=== PATIENT | female | born 1985 | race African-American/Black ===

== ENCOUNTER 2021-07-23 10:06 | Emergency (ER) | payer BC, SELFPAY ==
[2021-07-23] MEDS ORDERED: Morphine 4 MG/ML VIAL ONE (10:50)
[2021-07-23] MEDS ORDERED: Ondansetron PF 4 MG/2 ML Vial ONE (10:51)
[2021-07-23] MEDS ORDERED: Ibuprofen 200 MG TAB ONE (10:51)
[2021-07-23 11:12] LABS: Hemoglobin 13.3 g/dL (12.0-16.0); Mean Corpuscular HGB CONC 31.3 g/dL (32.0-36.0); Mean Corpuscular Hemoglobin 22.9 pg (27.0-31.0); Mean Corpuscular Volume 73.1 fL (78.0-98.0); Mean Platelet Volume 8.4 fL (7.4-10.4); Platelet Count 164 thou/uL (130-400); Red Blood Cell (RBC) Count 5.84 mill/uL (4.20-5.40); White Blood Cell (WBC) Count 4.5 thou/uL (4.8-10.8)
[2021-07-23 11:17] LABS: Bilirubin Small (Negative); Blood, Urine Trace (Negative); Clarity Cloudy (Clear); Glucose, Urine (Dipstick) Negative (Negative); Ketone, Urine > or equal to 80 mg/dL (Negative); Leukocyte Negative (Negative); Nitrite Negative (Negative); Protein, Urine (Dipstick) 30 mg/dL (Neg-Trace); Urobilinogen 0.2 mg/dL (Less than 2)
[2021-07-23 11:19] LABS: Specific Gravity, Urine 1.026 (1.002-1.036)
[2021-07-23 11:27] LABS: ALT (SGPT) 17 U/L (8-55); AST (SGOT) 19 U/L (5-34); Alkaline Phosphatase 69 U/L (40-110); Anion Gap 14 mmol/L (10-20); BHCG - Serum Negative (NEGATIVE); BUN (Urea Nitrogen) 10 mg/dL (7.0-18.7); Bilirubin, Total 0.5 mg/dL (0.2-1.2); Calc. Creatinine Clearance 0 mL/min (70-130); Carbon Dioxide 24 mmol/L (22-29); Chloride 102 mmol/L (98-107); Glucose 81 mg/dL (70-105); Potassium 3.8 mmol/L (3.5-5.1); Pregs Control Background? CLEAR/WHITE (CLR/WHITE); Pregs Control Bar Appear? YES (CONTROL BAR); Sodium 136 mmol/L (136-145)
[2021-07-23 11:32] LABS: Bacteria/HPF 1+ HPF (None Seen); Mucous/LPF 3+ LPF (<2+); RBC/HPF 0-3 HPF (0-3); Squamous Epithelial 0-3 HPF (0-3); Transitional Epithelial 0-3 HPF (None Seen); WBC/HPF 0-3 HPF (0-3)
[2021-07-23 11:42] LABS: Lymphocytes 23 % (21-51); MDiff Complete? YES; Microcytosis SLIGHT = 6-15 cells (100X) (0-5/hpf); Monocytes 11 % (0-10); Neutrophil 66 % (42-75); Platelet Morphology Comment Appears Adequate
[2021-07-24 11:50] LABS: SARS-CoV-2 PCR by NAA Not Detected (NotDetected)
== END 2021-07-23 12:03 | disposition home or self-care (01) ==
LOC: BURERS 10:06
DX: B34.9 Viral infection, unspecified (principal); R59.1 Generalized enlarged lymph nodes; L03.112 Cellulitis of left axilla; L03.111 Cellulitis of right axilla; Z20.822 Contact with and (suspected) exposure to COVID-19
CPT/HCPCS: 71045; 80053; 81003; 81015; 83605; 84703; 85025; 87804; 96374; 96375; J2270; J2405; U0003; U0005

== ENCOUNTER 2022-10-02 09:24 | Emergency (ER) | payer BC, SELFPAY ==
[2022-10-02] MEDS ORDERED: Acetaminophen 500 MG TAB ONE (09:42)
[2022-10-02] MEDS ORDERED: Ondansetron ODT 4 MG TAB ONE (09:42)
[2022-10-02 09:59] LABS: Hemoglobin 15.9 g/dL (12.0-16.0); Mean Corpuscular HGB CONC 30.8 g/dL (32.0-36.0); Mean Corpuscular Hemoglobin 22.9 pg (27.0-31.0); Mean Corpuscular Volume 74.4 fl (78.0-98.0); Mean Platelet Volume 7.9 fL (7.4-10.4); Platelet Count 226 10x3/uL (130-400); RBC Distribution Width 12.7 % (11.5-14.5); Red Blood Cell (RBC) Count 6.93 mill/uL (4.20-5.40); White Blood Cell (WBC) Count 4.9 10x3/uL (4.8-10.8)
[2022-10-02 10:08] LABS: Bilirubin Moderate (Negative); Blood, Urine Trace (Negative); Clarity Clear (Clear); Glucose, Urine (Dipstick) Negative (Negative); Ketone, Urine > or equal to 80 mg/dL (Negative); Leukocyte Negative (Negative); Nitrite Negative (Negative); Protein, Urine (Dipstick) 100 mg/dL (Neg-Trace); Urobilinogen 0.2 mg/dL (Less than 2); pH, Urine 5.5 (5.0-9.0)
[2022-10-02 10:12] LABS: Specific Gravity, Urine 1.028 (1.002-1.036)
[2022-10-02 10:13] LABS: Pregnancy Test - Urine (BHCG) Negative (Negative); Pregu Control Background? CLEAR/WHITE (CLR/WHITE); Pregu Control Bar Appear? YES (CONTROL BAR); Specific Gravity 1.028 (1.002-1.036)
[2022-10-02 10:16] LABS: Amphetamine Not Detected (NotDetected); Barbiturates Screen Not Detected (NotDetected); Benzodiazepine Screen Not Detected (NotDetected); Cocaine Metabolite Screen Not Detected (NotDetected); Methadone Not Detected (NotDetected); Methamphetamine Not Detected (NotDetected); Opiate Screen Not Detected (NotDetected); Oxycodone Screen Not Detected (NotDetected); Phencyclidine (PCP) Not Detected (NotDetected); THC/Cannabinoid Screen Detected (NotDetected); Tricyclic Screen Not Detected (NotDetected)
[2022-10-02 10:22] LABS: ALT (SGPT) 15 U/L (8-55); AST (SGOT) 16 U/L (5-34); Albumin 4.8 g/dL (3.5-5.0); Alkaline Phosphatase 91 U/L (40-110); Anion Gap 18 mmol/L (10-20); BUN (Urea Nitrogen) 12 mg/dL (7.0-18.7); Bilirubin, Total 0.8 mg/dL (0.2-1.2); Calc. Creatinine Clearance 0 mL/min (70-130); Calcium 10.1 mg/dL (7.8-10.44); Carbon Dioxide 18 mmol/L (22-29); Chloride 107 mmol/L (98-107); Estimated GFR 83; Globulin 4.8 g/dL (2.4-3.5); Glucose 85 mg/dL (70-105); Lipase 17 U/L (8-78); Potassium 4.5 mmol/L (3.5-5.1); Protein, Total 9.6 g/dL (6.0-8.3); Sodium 138 mmol/L (136-145)
[2022-10-02 10:29] LABS: Eosinophils 1 % (0-10); Lymphocytes 23 % (21-51); MDiff Complete? YES; Microcytosis SLIGHT = 6-15 cells (100X) (0-5/hpf); Monocytes 8 % (0-10); Neutrophil 68 % (42-75); Platelet Morphology Comment Appears Adequate
[2022-10-02 10:33] LABS: RBC/HPF 0-3 HPF (0-3); Squamous Epithelial 0-3 HPF (0-3); WBC/HPF 0-3 HPF (0-3)
[2022-10-02 10:34] LABS: Bacteria/HPF Rare-Few HPF (None Seen)
== END 2022-10-02 11:02 | disposition home or self-care (01) ==
LOC: BURERS 09:24
DX: R10.84 Generalized abdominal pain (principal)
CPT/HCPCS: 36415; 80053; 80306; 81003; 81015; 81025; 83690; 85025; 99284; Q0162